=== PATIENT | female | born 1980 | race Caucasian/White ===

== ENCOUNTER 2017-10-20 12:47 | Emergency (ER) | payer BC ==
--- NOTE | 2017-10-20 14:31 | UC ---
Head Injury HPI - HPI Summary HPI Summary: Patient presents with a past medical history of vasovagal syncope. She states Friday she was going to the bathroom, and she started to feel funny and she knew she was going to pass out, but could not stop herself, or catch herself. She fell forward and hit the left side of her head on the floor. Since the fall she has been experiencing pain on the left side of her forehead, including the top of her head. She also reports nausea. She denies double, or blurred vision, numbness, tingling, or ataxia. She does not take any anticoagulants. - History Of Current Complaint Chief Complaint: UCHeadInjury Stated Complaint: HEADACHE, AND NAUSEA Time Seen by Provider: 10/20/17 14:15 Hx Obtained From: Patient Hx Last Menstrual Period: Mirena ?: No Onset/Duration: Sudden Onset, Lasting Days Severity Currently: Moderate Severity Initially: Mild Pain Intensity: 4 Character: Dull, Pressure Aggravating Factor(s): Nothing Alleviating Factor(s): Nothing Associated Signs And Symptoms: Positive: Negative Related History: Similar Episode/Dx as - vasovagal syncope - Risk Factors SDH Risk Factor: Negative - Allergies/Home Medications Allergies/Adverse Reactions: Allergies Allergy/AdvReac Type Severity Reaction Status Date / Time No Known Allergies Allergy Verified 10/20/17 12:57 PMH/Surg Hx/FS Hx/Imm Hx Previously Healthy: Yes Cardiovascular History: Other Other Cardiovascular History: vasovagal syncope - Surgical History Surgical History: Yes Surgery Procedure, Year, and Place: Knee Surgeries ACL MEDIAL MENISCUS REPAIR, MENISCECTOMY IN - - Family History Known Family History: Positive: None - Social History Occupation: Employed Full-time Lives: With Family Alcohol Use: Occasionally Substance Use Type: None Smoking Status (MU): Never Smoked Tobacco Review of Systems Constitutional: Negative Skin: Negative Eyes: Negative ENT: Negative Respiratory: Negative Cardiovascular: Negative Gastrointestinal: Negative Genitourinary: Negative Motor: Negative Neurovascular: Negative Musculoskeletal: Negative Neurological: Headache Psychological: Negative Is Patient Immunocompromised?: No All Other Systems Reviewed And Are Negative: Yes Physical Exam Triage Information Reviewed: Yes Appearance: Well-Appearing Vital Signs: Initial Vital Signs Temp 98.3 F 10/20/17 12:53 Pulse 68 10/20/17 12:53 Resp 14 01/29/18 12:53 BP 120/76 10/20/17 12:53 Pulse Ox 100 10/20/17 12:53 Vital Signs Reviewed: Yes Eye Exam: Normal ENT Exam: Normal Neck exam: Normal Neck: Positive: 1 Respiratory Exam: Normal Cardiovascular Exam: Normal Abdominal Exam: Normal Musculoskeletal Exam: Normal Neurological Exam: Normal Psychological Exam: Normal Skin Exam: Normal Head Injury Course/Dx - Course Course Of Treatment: Patient presents 2 days s/p vasovagal syncope. She presents with headache, and ct brain was obtained and was negative. She presents with what is most likely post concussion syndrome. I did recommend she follow up with cardiology regarding her history of reported vasovagal syncope. She is asymtomatic of those symtpoms at this time, and I do not feel she needs an emergent cardiology consult given her history and the fact that she is not having those type of symtpoms at this time. she verbalized understanding and was in agreement with the discharge plan. - Differential Dx/Diagnosis Differential Diagnosis/HQI/PQRI: Other - vasovagal syncope minor head injury post concussion sydrome Provider Diagnoses: vasovagal syncope. minor head injury. post concussion syndrome Discharge - Discharge Plan Condition: Stable Disposition: HOME Patient Education Materials: Concussion (ED), Head Injury (ED) Referrals: Katheryn Celestin MD [Primary Care Provider] - Additional Instructions: I recommend you follow up with your chief recordist sobia regarding the syncopal episode.
[2017-10-20 14:52] VITALS: BP 124/75
--- NOTE | 2017-10-20 14:55 | RAD ---
INDICATION: Head injury. COMPARISON: There are no prior studies available for comparison. TECHNIQUE: Contiguous axial sections of the brain were obtained from the skull base to the vertex without contrast. FINDINGS: The ventricles, cisterns and sulci are within normal limits. No significant focal abnormality or mass effect is seen. There is no evidence for hemorrhage. No significant focal osseous abnormality is seen. The visualized portion of the paranasal sinuses and mastoid air cells appear clear. IMPRESSION: NO EVIDENCE FOR ACUTE INTRACRANIAL ABNORMALITY.
== END 2017-10-20 14:55 | disposition home or self-care (01) ==
LOC: UCEAST 12:47
DX: S09.90XA Unspecified injury of head, initial encounter (principal); R55 Syncope and collapse; F07.81 Postconcussional syndrome; Z97.5 Presence of (intrauterine) contraceptive device; W18.12XA Fall from or off toilet with subsequent striking against object, initial encounter; Y92.012 Bathroom of single-family (private) house as the place of occurrence of the external cause
CPT/HCPCS: 70450; 99211; G0463

== ENCOUNTER 2018-05-19 17:39 | Emergency (ER) | payer BC ==
[2018-05-19] MEDS ORDERED: NS 0.9% 1000 ML* 1,000 ML IV ONE (17:49)
[2018-05-19 18:14] LABS: ABS Basophils 0 10^3/ul (0-0.2); ABS Eosinophils 0.1 10^3/ul (0-0.6); ABS Monocytes 0.4 10^3/ul (0-0.8); ABS Nucleated RBC 0 10^3/ul; Eosinophil % 0.8 % (0-6); Hematocrit 41 % (35-47); Hemoglobin 14.1 g/dl (12.0-16.0); Lymphocyte % 9.7 % (25-47); Mean Corpuscular HGB Conc 34 g/dl (31-36); Mean Corpuscular Hemoglobin 29 pg (27-31); Mean Corpuscular Volume 86 fL (80-97); Mean Platelet Volume 7.9 um3 (7.4-10.4); Nucleated Red Blood Cells % 0; Platelet Count 227 10^3/ul (150-450); Red Cell Distribution Width 13 % (10.5-15); White Blood Count 10.5 10^3/ul (3.5-10.8)
--- NOTE | 2018-05-19 18:16 | ED ---
Syncope/Near Syncope - HPI Summary HPI Summary: This patient is a 37 year old F presenting to [facility] accompanied by her friend with a chief complaint of syncope since 1550. Pt was using needle to remove a splinter from her daughters hand, and dislikes needles. Pt states she felt like she was going to pass out, and then did, endorsing LOC. The incidence was witnessed by her friend who is accompanying her; she states the pt put head on table, became really stiff 10 seconds later, her hands and feet became lynne and white, she started seizing for ~ 1 minute, with her back arched and hands and feet shaking, eyes wide open, and making unintelligible noises. After she woke pt denied confusion, frothing, weakness, numbness, associated injury, and incontinence, but did endorse nausea. She notes another syncopal episode 3 weeks ago, but hadnt had one before that in years. Pt endorses similar sx in previous incidents. Pt did see a neurologist years ago. She denies PMHx sz. Pt denies alcohol, smoking, drugs, FHx. Rx levothyroxine PMHx thyroid disease. - History Of Current Complaint Chief Complaint: EDSyncope Time Seen by Provider: 05/19/18 18:03 Hx Obtained From: Patient, Other: - friend Onset/Duration: Sudden Onset, Lasting Minutes, Resolved Timing: Constant Context: Witnessed, Loss Of Consciousness Activity At Onset: At Rest Associated Head Trauma: No Aggravating Factor(s): Other - using a needle to remove a splinter, dislike of needles Alleviating Factor(s): Spontaneous Resolution Associated Signs And Symptoms: Lightheadedness, Seizure - feet and hands shaking , back arching, Other - nausea Related History: Similar Episode/Dx as - 3 weeks ago, years ago - Allergies/Home Medications Allergies/Adverse Reactions: Allergies Allergy/AdvReac Type Severity Reaction Status Date / Time No Known Allergies Allergy Verified 05/19/18 17:46 PMH/Surg Hx/FS Hx/Imm Hx Endocrine/Hematology History: Reports: Hx Thyroid Disease - HYPOTHYROIDISM, TAKING MEDICATION Denies: Hx Diabetes Cardiovascular History: Reports: Other Cardiovascular Problems/Disorders - VASO- VAGAL Denies: Hx Angina, Hx Hypertension, Hx Pacemaker/ICD Respiratory History: Denies: Hx Asthma, Hx Chronic Obstructive Pulmonary Disease (COPD), Hx Sleep Apnea, Other Respiratory Problems/Disorders GI History: Denies: Hx Cirrhosis, Hx Crohn's Disease, Hx Gastroesophageal Reflux Disease , Hx Hiatal Hernia, Hx Irritable Bowel, Hx Ulcer History: Denies: Hx Kidney Infection, Hx Kidney Stones, Other Problems/Disorders Musculoskeletal History: Denies: Hx Arthritis, Hx Bursitis, Hx Tendonitis Sensory History: Reports: Hx Contacts or Glasses - PRIMARILY CONTACT Denies: Hx Cataracts, Hx Glaucoma, Hx Deafness, Hx Hearing Aid Opthamlomology History: Reports: Hx Contacts or Glasses - PRIMARILY CONTACT Denies: Hx Cataracts, Hx Glaucoma EENT History: Denies: Hx Deafness Neurological History: Reports: Other Neuro Impairments/Disorders Denies: Hx Headaches, Hx Migraine, Hx Nerve Disease Psychiatric History: Denies: Hx Anxiety, Hx Depression - Surgical History Surgery Procedure, Year, and Place: Knee Surgeries ACL MEDIAL MENISCUS REPAIR, MENISCECTOMY IN - Hx Anesthesia Reactions: No Infectious Disease History: No Infectious Disease History: Denies: Hx Hepatitis, Hx Human Immunodeficiency Virus (HIV), Traveled Outside the [place] in Last 30 Days - Family History Known Family History: Positive: None - Spefically denied all FHx when asked - Social History Occupation: Employed Full-time Lives: With Family Alcohol Use: Occasionally Substance Use Type: Reports: None Smoking Status (MU): Never Smoked Tobacco Review of Systems Negative: Fever, Other - frothing at the mouth Positive: Nausea Negative: incontinence Negative: Arthralgia - denies associated injuries Positive: Syncope. Negative: Weakness, Numbness All Other Systems Reviewed And Are Negative: Yes Physical Exam - Summary Physical Exam Summary: Appearance: Well appearing, no pain distress Skin: warm, dry, reflects adequate perfusion Head/face: normal Eyes: EOMI, SEE ENT: normal Neck: supple, non-tender Respiratory: CTA, breath sounds present Cardiovascular: RRR, pulses symmetrical Abdomen: non-tender, soft Bowel: present Musculoskeletal: normal, strength/ROM intact Neuro: normal, sensory motor intact, A&Ox3 Triage Information Reviewed: Yes Vital Signs On Initial Exam: Initial Vitals Temp Pulse Resp BP Pulse Ox 97.4 F 75 16 129/77 100 05/19/18 17:41 05/19/18 17:41 05/19/18 17:41 05/19/18 17:41 05/19/18 17:41 Vital Signs Reviewed: Yes Diagnostics - Vital Signs Vital Signs Temp Pulse Resp BP Pulse Ox 05/19/18 17:41 97.4 F 75 16 129/77 100 - Laboratory Result Diagrams: 05/19/18 18:04 05/19/18 18:04 Lab Statement: Any lab studies that have been ordered have been reviewed, and results considered in the medical decision making process. - CT Brain CT Interpretation: No Acute Changes CT Interpretation Completed By: Radiologist - No acute intracranial abnormality. Dr. Gonzalez has reviewed this report. - EKG 1753 Cardiac Rate: NL - 61 EKG Rhythm: Sinus Rhythm ST Segment: Non-Specific - ST-T changes Ectopy: None EKG Interpretation: Non-specific ST-T changes EKG Comparison: Other - none to compare to. Re-Evaluation - Re-Evaluation First Eval Re-Evaluation Time: 21:07 Change: Improved Comment: Informed pt of (-) CT, labs. Discussed dx and discharge, pt feels better. Course/Dx Course Of Treatment: A 37-year-old F presents to the ED with a CC of syncope and possible sz at 1550 lasting for 1 minute. (+) LOC, sz-like activity, nausea. (-) confusion s/p syncope, associated injury, frothing, incontinence. PMHx syncopal episodes, has seen neurologist in past for it, no PMHx sz. A CTB was (-). An EKG reveals NSR at 61 BPM with non-specific ST-T changes. In the ED course, pt was given nl saline. The pt shows a low lymph % and high neut %. - Diagnoses Differential Diagnosis/HQI/PQRI: Positive: Hypovolemia, Vasovagal Episode Provider Diagnoses: Vasovagal syncope Discharge - Sign-Out/Discharge Documenting (check all that apply): Patient Departure - discharge - Discharge Plan Condition: Stable Disposition: HOME Patient Education Materials: Syncope (ED) Referrals: Katheryn Celestin MD [Primary Care Provider] - 3 Days Additional Instructions: Return to the emergency department for any new or worsening symptoms. - Billing Disposition and Condition Condition: STABLE Disposition: Home - Attestation Statements Document Initiated by Scribe: Yes Documenting Scribe: Jaleel Gómez Provider For Whom Scribe is Documenting (Include Credential): Dr. Ziyad Gonzalez MD Scribe Attestation: Jaleel House, scribed for Dr. Ziyad Gonzalez MD on 05/19/18 at 2117. Scribe Documentation Reviewed: Yes Provider Attestation: The documentation as recorded by the scribe, Jaleel Gómez accurately reflects the service I personally performed and the decisions made by me, Dr. Ziyad Gonzalez MD
[2018-05-19 18:35] LABS: EGFR Non-African American 63.5 (>60)
--- NOTE | 2018-05-19 20:05 | RAD ---
EXAM: CT Head Without Intravenous Contrast CLINICAL HISTORY: 37 years old, female; Signs and symptoms; Syncope and collapse; Additional info: Syncope/seizure TECHNIQUE: Axial computed tomography images of the head/brain without intravenous contrast. All CT scans at this facility use at least one of these dose optimization techniques: automated exposure control; mA and/or kV adjustment per patient size (includes targeted exams where dose is matched to clinical indication); or iterative reconstruction. COMPARISON: BRAIN WO CT BRAIN WO 10/20/2017 2:35 PM FINDINGS: Brain: No acute hemorrhage, edema, or extraaxial collection. Quinones white differentiation is maintained throughout the brain. Ventricles: Unremarkable. No ventriculomegaly. Bones/joints: No acute fracture or aggressive osseous lesions Soft tissues: Unremarkable. Sinuses: Unremarkable as visualized. No acute sinusitis. Mastoid air cells: Unremarkable as visualized. No mastoid effusion. IMPRESSION: No acute intracranial abnormality.
[2018-05-19 21:14] VITALS: BP 114/79
== END 2018-05-19 21:22 | disposition home or self-care (01) ==
LOC: ED 17:39
DX: R55 Syncope and collapse (principal); R11.0 Nausea; R42 Dizziness and giddiness
CPT/HCPCS: 36415; 70450; 80048; 80076; 83735; 84484; 84702; 85025; 93005; 96360; 99283

== ENCOUNTER → 2019-01-07 15:51 | Emergency (ER) | payer BC ==
[~2019-01-07 15:51] MED LIST: Ketorolac INJ* 30 MG/ML 1 ML VIAL IM ONE; Pantoprazole TAB * 40 MG TAB PO ONE
[2019-01-07 19:12] LABS: Urine Appearance Cloudy; Urine Bilirubin Negative (Negative); Urine Blood Negative (Negative); Urine Color Yellow; Urine Glucose Negative (Negative); Urine Ketones Negative (Negative); Urine Nitrite Negative (Negative); Urine Protein Negative (Negative); Urine Urobilinogen Negative (Negative)
[2019-01-07 19:48] LABS: ABS Basophils 0 10^3/ul (0-0.2); ABS Eosinophils 0.2 10^3/ul (0-0.6); ABS Lymphocytes 1.7 10^3/ul (1.0-4.8); ABS Monocytes 0.4 10^3/ul (0-0.8); ABS Neutrophils 2.7 10^3/ul (1.5-7.7); ABS Nucleated RBC 0 10^3/ul; Eosinophil % 3.4 %; Hematocrit 39 % (33-41); Hemoglobin 13.2 g/dL (12.0-16.0); Lymphocyte % 34.7 %; Mean Corpuscular HGB Conc 34 g/dL (31-36); Mean Corpuscular Hemoglobin 30 pg (27-31); Mean Corpuscular Volume 87 fL (80-97); Mean Platelet Volume 8.5 fL (7.4-10.4); Nucleated Red Blood Cells % 0.1; Platelet Count 203 10^3/uL (150-450); Red Blood Count 4.47 10^6 /uL (3.70-4.87); Red Cell Distribution Width 13 % (10.5-15)
[2019-01-07 20:08] LABS: HCG Pregnancy 0.66 mIU/mL
[2019-01-07 20:22] LABS: Albumin 4.3 g/dL (3.2-5.2); Albumin/Globulin Ratio 1.7 (1-3); BUN/Creatinine Ratio 9.1 (8-20); C Reactive Protein 1.7 mg/L (<8.01); Calcium 9.8 mg/dL (8.6-10.3); EGFR African American 75.6 (>60); EGFR Non-African American 62.4 (>60); Globulin 2.5 g/dL (2-4); Potassium 4.1 mmol/L (3.5-5.0); Total Bilirubin 0.7 mg/dL (0.2-1.0); Total Protein 6.8 g/dL (6.4-8.9)
--- NOTE | 2019-01-07 20:50 | ED ---
Abdominal Pain/Female - HPI Summary HPI Summary: 38-year-old female presents with onset of generalized abdominal pain today with some mild nausea. Describes pain as an ache. Nonradiating. Reports normal formed brown stools. Last BM yesterday. Patient has Mirena IUD and does not get her menses. Denies fever, chills, vomiting, diarrhea, constipation, blood in stool, melena, back or flank pain, dysuria, frequency, urgency, hematuria, vaginal discharge, abnormal vaginal bleeding or dyspareunia. - History of Current Complaint Chief Complaint: EDAbdPain Stated Complaint: ABD PAIN PER PT Time Seen by Provider: 01/07/19 18:47 Hx Obtained From: Patient Hx Last Menstrual Period: Mirena Pain Intensity: 7 Allergies/Adverse Reactions: Allergies Allergy/AdvReac Type Severity Reaction Status Date / Time No Known Allergies Allergy Verified 01/07/19 15:57 PMH/Surg Hx/FS Hx/Imm Hx Previously Healthy: Yes Endocrine/Hematology History: Reports: Hx Thyroid Disease - HYPOTHYROIDISM, TAKING MEDICATION Denies: Hx Diabetes Cardiovascular History: Reports: Other Cardiovascular Problems/Disorders - VASO- VAGAL Denies: Hx Angina, Hx Hypertension, Hx Pacemaker/ICD Respiratory History: Denies: Hx Asthma, Hx Chronic Obstructive Pulmonary Disease (COPD), Hx Sleep Apnea, Other Respiratory Problems/Disorders GI History: Denies: Hx Cirrhosis, Hx Crohn's Disease, Hx Gastroesophageal Reflux Disease , Hx Hiatal Hernia, Hx Irritable Bowel, Hx Ulcer History: Denies: Hx Kidney Infection, Hx Kidney Stones, Other Problems/Disorders Musculoskeletal History: Denies: Hx Arthritis, Hx Bursitis, Hx Tendonitis Sensory History: Reports: Hx Contacts or Glasses - PRIMARILY CONTACT Denies: Hx Cataracts, Hx Glaucoma, Hx Deafness, Hx Hearing Aid Opthamlomology History: Reports: Hx Contacts or Glasses - PRIMARILY CONTACT Denies: Hx Cataracts, Hx Glaucoma Neurological History: Reports: Other Neuro Impairments/Disorders Denies: Hx Headaches, Hx Migraine, Hx Nerve Disease Psychiatric History: Denies: Hx Anxiety, Hx Depression - Surgical History Surgery Procedure, Year, and Place: Knee Surgeries ACL MEDIAL MENISCUS REPAIR, MENISCECTOMY IN - Hx Anesthesia Reactions: No Infectious Disease History: No Infectious Disease History: Denies: Hx Hepatitis, Hx Human Immunodeficiency Virus (HIV), Traveled Outside the [place] in Last 30 Days - Family History Known Family History: Positive: None - Spefically denied all FHx when asked - Social History Occupation: Employed Full-time Lives: With Family Alcohol Use: Rare Substance Use Type: Reports: None Smoking Status (MU): Never Smoked Tobacco Review of Systems Negative: Fever, Chills, Fatigue Negative: Sore Throat Negative: Palpitations, Chest Pain Negative: Shortness Of Breath, Cough Positive: Abdominal Pain, Nausea. Negative: Vomiting, Diarrhea Negative: dysuria, discharge, frequency, flank pain, hematuria, urgency, other - abnormal vaginal bleeding Musculoskeletal: Negative Skin: Negative Neurological: Negative All Other Systems Reviewed And Are Negative: Yes Physical Exam - Summary Physical Exam Summary: GENERAL APPEARANCE: Well developed, well nourished, alert and cooperative, and appears to be in no acute distress. THROAT: Pharynx normal No tonsilar inflammation, swelling, exudate, or lesions. Uvula midline. Oral cavity normal. Teeth and gingiva in good general condition. NECK: Neck supple, non-tender without lymphadenopathy. CARDIAC: Normal S1 and S2. No S3, S4 or murmurs. Rhythm is regular. There is no peripheral edema, cyanosis or pallor. Extremities are warm and well perfused. Capillary refill is less than 2 seconds. Peripheral pulses intact. LUNGS: Clear to auscultation without rales, rhonchi, wheezing or diminished breath sounds. ABDOMEN: Positive bowel sounds. Soft and nondistended. Mild generalized abdominal pain without guarding or rebound. No masses or hepatosplenomegally. No CVA tenderness. MUSKULOSKELETAL: ROM intact to all extremities. No joint erythema or tenderness. Normal muscular development. Normal gait. SKIN: Skin normal color, texture and turgor with no lesions or eruptions. Vital Signs On Initial Exam: Initial Vitals Temp Pulse Resp BP Pulse Ox 98.3 F 65 16 124/82 99 01/07/19 15:55 01/07/19 15:55 01/07/19 15:55 01/07/19 15:55 01/07/19 15:55 Diagnostics - Vital Signs Vital Signs Temp Pulse Resp BP Pulse Ox 01/07/19 19:30 112/75 01/07/19 19:03 60 100 01/07/19 19:01 59 114/70 100 01/07/19 18:30 53 106/70 100 01/07/19 18:01 79 122/75 100 01/07/19 17:12 98.9 F 58 16 104/76 99 01/07/19 15:55 98.3 F 65 16 124/82 99 - Laboratory Lab Results: Lab Results 01/07/19 01/07/19 01/07/19 Range/Units 19:01 19:31 19:31 WBC 5.0 (3.5-10.8) 10^3/uL RBC 4.47 (3.70-4.87) 10^6 /uL Hgb 13.2 (12.0-16.0) g/dL Hct 39 (33-41) % MCV 87 (80-97) fL MCH 30 (27-31) pg MCHC 34 (31-36) g/dL RDW 13 (10.5-15) % Plt Count 203 (150-450) 10^3/uL MPV 8.5 (7.4-10.4) fL Neut % (Auto) 53.9 % Lymph % (Auto) 34.7 % Caroline % (Auto) 7.5 % Eos % (Auto) 3.4 % Baso % (Auto) 0.5 % Absolute Neuts (auto) 2.7 (1.5-7.7) 10^3/ul Absolute Lymphs (auto) 1.7 (1.0-4.8) 10^3/ul Absolute Monos (auto) 0.4 (0-0.8) 10^3/ul Absolute Eos (auto) 0.2 (0-0.6) 10^3/ul Absolute Basos (auto) 0 (0-0.2) 10^3/ul Absolute Nucleated RBC 0 10^3/ul Nucleated RBC % 0.1 Sodium 140 (135-145) mmol/L Potassium 4.1 (3.5-5.0) mmol/L Chloride 108 (101-111) mmol/L Carbon Dioxide 27 (22-32) mmol/L Anion Gap 5 (2-11) mmol/L BUN 9 (6-24) mg/dL Creatinine 0.99 H (0.51-0.95) mg/dL Est GFR ( Amer) 75.6 (>60) Est GFR (Non-Af Amer) 62.4 (>60) BUN/Creatinine Ratio 9.1 (8-20) Glucose 97 (70-100) mg/dL Lactic Acid (0.5-2.0) mmol/L Calcium 9.8 (8.6-10.3) mg/dL Total Bilirubin 0.70 (0.2-1.0) mg/dL AST 18 (13-39) U/L ALT 16 (7-52) U/L Alkaline Phosphatase 66 (34-104) U/L C-Reactive Protein 1.70 (<8.01) mg/L Total Protein 6.8 (6.4-8.9) g/dL Albumin 4.3 (3.2-5.2) g/dL Globulin 2.5 (2-4) g/dL Albumin/Globulin Ratio 1.7 (1-3) Lipase 29 (11.0-82.0) U/L Beta HCG, Quant 0.66 mIU/mL Urine Color Yellow Urine Appearance Cloudy Urine pH 5.0 (5-9) Ur Specific [place] 1.020 (1.010-1.030) Urine Protein Negative (Negative) Urine Ketones Negative (Negative) Urine Blood Negative (Negative) Urine Nitrate Negative (Negative) Urine Bilirubin Negative (Negative) Urine Urobilinogen Negative (Negative) Ur Leukocyte Esterase Negative (Negative) Urine Glucose Negative (Negative) 01/07/19 Range/Units 19:31 WBC (3.5-10.8) 10^3/uL RBC (3.70-4.87) 10^6 /uL Hgb (12.0-16.0) g/dL Hct (33-41) % MCV (80-97) fL MCH (27-31) pg MCHC (31-36) g/dL RDW (10.5-15) % Plt Count (150-450) 10^3/uL MPV (7.4-10.4) fL Neut % (Auto) % Lymph % (Auto) % Caroline % (Auto) % Eos % (Auto) % Baso % (Auto) % Absolute Neuts (auto) (1.5-7.7) 10^3/ul Absolute Lymphs (auto) (1.0-4.8) 10^3/ul Absolute Monos (auto) (0-0.8) 10^3/ul Absolute Eos (auto) (0-0.6) 10^3/ul Absolute Basos (auto) (0-0.2) 10^3/ul Absolute Nucleated RBC 10^3/ul Nucleated RBC % Sodium (135-145) mmol/L Potassium (3.5-5.0) mmol/L Chloride (101-111) mmol/L Carbon Dioxide (22-32) mmol/L Anion Gap (2-11) mmol/L BUN (6-24) mg/dL Creatinine (0.51-0.95) mg/dL Est GFR ( Amer) (>60) Est GFR (Non-Af Amer) (>60) BUN/Creatinine Ratio (8-20) Glucose (70-100) mg/dL Lactic Acid 0.9 (0.5-2.0) mmol/L Calcium (8.6-10.3) mg/dL Total Bilirubin (0.2-1.0) mg/dL AST (13-39) U/L ALT (7-52) U/L Alkaline Phosphatase (34-104) U/L C-Reactive Protein (<8.01) mg/L Total Protein (6.4-8.9) g/dL Albumin (3.2-5.2) g/dL Globulin (2-4) g/dL Albumin/Globulin Ratio (1-3) Lipase (11.0-82.0) U/L Beta HCG, Quant mIU/mL Urine Color Urine Appearance Urine pH (5-9) Ur Specific [place] (1.010-1.030) Urine Protein (Negative) Urine Ketones (Negative) Urine Blood (Negative) Urine Nitrate (Negative) Urine Bilirubin (Negative) Urine Urobilinogen (Negative) Ur Leukocyte Esterase (Negative) Urine Glucose (Negative) Result Diagrams: 01/07/19 19:31 01/07/19 19:31 Lab Statement: Any lab studies that have been ordered have been reviewed, and results considered in the medical decision making process. Abdominal Pain Fem Course/Dx - Course Course Of Treatment: 38-year-old female presents with onset of generalized abdominal pain today with some mild nausea. Describes pain as an ache. Nonradiating. Reports normal formed brown stools. Last BM yesterday. Patient has Mirena IUD and does not get her menses. Denies fever, chills, vomiting, diarrhea, constipation, blood in stool, melena, back or flank pain, dysuria, frequency, urgency, hematuria, vaginal discharge, abnormal vaginal bleeding or dyspareunia. Afebrile. Vital signs stable. Exam was overall unremarkable except for some mild generalized abdominal pain without guarding or rebound. No hepatosplenomegaly. No CVA tenderness. Lab work was all within normal limits including a negative serum . UA normal. Reviewed results with the patient and discussed obtaining imaging for further evaluation of her pain versus watchful waiting. Patient is electing for watchful waiting at this time. Patient initially declined pain medication but then consented to receiving ketorolac 50 mg IM for her pain. I have also recommended that she start on omeprazole 40 mg daily and the first dose was given in the emergency room. She is to follow-up with her primary care provider in 3-5 days. Anticipatory guidance and warning symptoms were reviewed with the patient. Verbalizes understanding and agrees plan of care. - Diagnoses Differential Diagnosis: Positive: Gall Bladder Disease, Pancreatitis, Peptic Ulcer Disease, , Renal Colic, Urinary Tract Infection Provider Diagnoses: Acute abdominal pain Discharge - Sign-Out/Discharge Documenting (check all that apply): Patient Departure Patient Received Moderate/Deep Sedation with Procedure: No - Discharge Plan Condition: Stable Disposition: HOME Prescriptions: Omeprazole 40 mg PO DAILY #30 capsule. Patient Education Materials: Acute Abdominal Pain (ED) Referrals: Katheryn Cleestin MD [Primary Care Provider] - 3 Days (If no improvement.) Additional Instructions: The lab work and urine tests performed in the emergency room today were all normal. I do not have a good explanation for your abdominal pain at this time but feel that based on your history and exam imaging is probably not needed at this time and we can do some watchful waiting. Start omeprazole 40 mg daily. You were given a dose in the emergency room. Be sure you stay well hydrated. If you are still having nausea, I would recommend sticking to a bland diet including saltine crackers, toast, bananas, rice, and applesauce then return to a normal diet as tolerated. Avoid spicy or fatty foods. Follow up here or with your primary care provider in 3-5 days if symptoms persist. Seek immediate medical attention in the emergency room if you develop fever greater than 100.5 F, have severe abdominal pain, persistent vomiting, blood in your vomit or stool, or any worsening of symptoms. - Billing Disposition and Condition Condition: STABLE Disposition: Home
[2019-01-07 21:47] VITALS: BP 123/83
== END | disposition home or self-care (01) ==
LOC: ED 15:51
DX: R10.9 Unspecified abdominal pain (principal); E03.9 Hypothyroidism, unspecified; Z79.899 Other long term (current) drug therapy; Z97.5 Presence of (intrauterine) contraceptive device
CPT/HCPCS: 36415; 80053; 81003; 83605; 83690; 84702; 85025; 86140; 96374; 99283; A9270-GY; J1885

== ENCOUNTER 2019-11-01 22:17 | Emergency (ER) | payer BC ==
--- NOTE | 2019-11-01 23:05 | ED ---
Neurological HPI - HPI Summary HPI Summary: Patient complains of sudden onset numbness and tingling to left hand and bilateral lips starting at 8:45 PM this evening. Symptoms resolved after 15 minutes. Denies prior history of same symptoms, facial droop, speech change, imbalance, vision change, dizziness, N/V, VALLE, trauma, fever, cough, sore throat , CP, SOB, N/3/D, abdominal pain, change in urine, change in BM. Sent by urgent care for stroke rule out. Medical History is none. - History of Current Complaint Chief Complaint: EDNeurologicalDeficit Stated Complaint: L SIDED NUMBNESS PER EMS Time Seen by Provider: 11/01/19 22:50 Hx Obtained From: Patient Hx Last Menstrual Period: Mirena Onset/Duration: Sudden Onset, Started hours ago Timing: Intermittent Episodes Lasting: Onset Severity: Mild Current Severity: None Neurological Deficit Location: Facial, LUE Pain Intensity: 5 Pain Scale Used: 0-10 Numeric Character: Numbness/Tingling - Allergy/Home Medications Allergies/Adverse Reactions: Allergies Allergy/AdvReac Type Severity Reaction Status Date / Time No Known Allergies Allergy Verified 11/01/19 22:32 PMH/Surg Hx/FS Hx/Imm Hx Endocrine/Hematology History: Reports: Hx Thyroid Disease - HYPOTHYROIDISM, TAKING MEDICATION Denies: Hx Diabetes Cardiovascular History: Reports: Other Cardiovascular Problems/Disorders - VASO- VAGAL Denies: Hx Angina, Hx Hypertension, Hx Pacemaker/ICD Respiratory History: Denies: Hx Asthma, Hx Chronic Obstructive Pulmonary Disease (COPD), Hx Sleep Apnea, Other Respiratory Problems/Disorders GI History: Denies: Hx Cirrhosis, Hx Crohn's Disease, Hx Gastroesophageal Reflux Disease , Hx Hiatal Hernia, Hx Irritable Bowel, Hx Ulcer History: Denies: Hx Kidney Infection, Hx Kidney Stones, Other Problems/Disorders Musculoskeletal History: Denies: Hx Arthritis, Hx Bursitis, Hx Tendonitis Sensory History: Reports: Hx Contacts or Glasses - PRIMARILY CONTACT Denies: Hx Cataracts, Hx Glaucoma, Hx Deafness, Hx Hearing Aid Opthamlomology History: Reports: Hx Contacts or Glasses - PRIMARILY CONTACT Denies: Hx Cataracts, Hx Glaucoma Neurological History: Reports: Other Neuro Impairments/Disorders Denies: Hx Headaches, Hx Migraine, Hx Nerve Disease Psychiatric History: Denies: Hx Anxiety, Hx Depression - Surgical History Surgery Procedure, Year, and Place: Knee Surgeries '98 ACL MEDIAL MENISCUS REPAIR, MENISCECTOMY IN - Hx Anesthesia Reactions: No Infectious Disease History: No Infectious Disease History: Denies: Hx Hepatitis, Hx Human Immunodeficiency Virus (HIV), Traveled Outside the [place] in Last 30 Days - Family History Known Family History: Positive: None - Spefically denied all FHx when asked, Cardiac Disease, Diabetes, Other - no FH of stroke - Social History Alcohol Use: Rare Substance Use Type: Reports: None Smoking Status (MU): Never Smoked Tobacco Review of Systems Constitutional: Negative Eyes: Negative ENT: Negative Cardiovascular: Negative Respiratory: Negative Gastrointestinal: Negative Genitourinary: Negative Musculoskeletal: Other Skin: Negative Neurological/Mental Status: Negative Psychological: Normal All Other Systems Reviewed And Are Negative: Yes Physical Exam - Summary Physical Exam Summary: Neuro exam normal. Diploma Pharmacy Technician strength normal left hand. Triage Information Reviewed: Yes Vital Signs On Initial Exam: Initial Vitals Temp Pulse Resp BP Pulse Ox 98.2 F 67 15 143/85 100 11/01/19 22:22 11/01/19 22:22 11/01/19 22:22 11/01/19 22:22 11/01/19 22:22 Vital Signs Reviewed: Yes Appearance: Positive: Well-Appearing Skin: Positive: Warm Head/Face: Positive: Normal Head/Face Inspection Eyes: Positive: Normal ENT: Positive: Normal ENT inspection Neck: Positive: Supple Respiratory/Lung Sounds: Positive: Clear to Auscultation Cardiovascular: Positive: Normal Abdomen Description: Positive: Nontender Musculoskeletal: Positive: Normal Neurological: Positive: Normal Psychiatric: Positive: Normal AVPU Assessment: Alert - Yuli Coma Scale Best Eye Response: 4 - Spontaneous Best Motor Response: 6 - Obeys Commands Best Verbal Response: 5 - Oriented Coma Scale Total: 15 Procedures - Sedation Patient Received Moderate/Deep Sedation with Procedure: No Diagnostics - Vital Signs Vital Signs Temp Pulse Resp BP Pulse Ox 11/01/19 22:22 98.2 F 67 15 143/85 100 - Laboratory Result Diagrams: 11/01/19 23:26 11/01/19 23:26 Lab Statement: Any lab studies that have been ordered have been reviewed, and results considered in the medical decision making process. Course/Dx - Course Course Of Treatment: Patient complains of sudden onset numbness and tingling to left hand and bilateral lips starting at 8:45 PM this evening. Symptoms resolved after 15 minutes. Denies prior history of same symptoms, facial droop , speech change, imbalance, vision change, dizziness, N/V, VALLE, trauma, fever, cough, sore throat, CP, SOB, N/3/D, abdominal pain, change in urine, change in BM. Sent by urgent care for stroke rule out. Medical History is none. Vital signs within normal limits. Labs unremarkable. CT brain negative. - Diagnoses Provider Diagnoses: Tingling of left upper extremity, Numbness and tingling Discharge ED - Sign-Out/Discharge Documenting (check all that apply): Patient Departure - Discharge Plan Condition: Stable Disposition: HOME Patient Education Materials: Paresthesia (ED) Referrals: Katheryn Celestin MD [Primary Care Provider] - Sheldon Mijares MD [Medical Doctor] - Additional Instructions: If symptoms return follow-up with neurology Dr. Mijares for further evaluation. Return to the ED for worsening or concerning symptoms. - Billing Disposition and Condition Condition: STABLE Disposition: Home
[2019-11-01 23:34] LABS: ABS Lymphocytes 1.6 10^3/ul (1.0-4.8); ABS Monocytes 0.5 10^3/ul (0-0.8); ABS Neutrophils 7.2 10^3/ul (1.5-7.7); Eosinophil % 0.5 %; Hematocrit 38 % (35-47); Hemoglobin 13.2 g/dL (12.0-16.0); Lymphocyte % 17.3 %; Mean Corpuscular HGB Conc 35 g/dL (31-36); Mean Corpuscular Hemoglobin 29 pg (27-31); Mean Corpuscular Volume 85 fL (80-97); Mean Platelet Volume 8.1 fL (7.4-10.4); Platelet Count 209 10^3/uL (150-450); Red Blood Count 4.51 10^6 /uL (3.70-4.87); Red Cell Distribution Width 13 % (10-15); White Blood Count 9.4 10^3/uL (3.5-10.8)
[2019-11-01 23:55] LABS: ALT 9 U/L (7-52); AST 14 U/L (13-39); Albumin 4.4 g/dL (3.2-5.2); Albumin/Globulin Ratio 1.8 (1-3); Alkaline Phosphatase 76 U/L (34-104); Anion Gap 7 mmol/L (2-11); BUN/Creatinine Ratio 10.1 (8-20); Blood Urea Nitrogen 10 mg/dL (6-24); C Reactive Protein < 1.00 mg/L (<8.01); CO2 Carbon Dioxide 25 mmol/L (22-32); Chloride 107 mmol/L (101-111); EGFR African American 75.6 (>60); EGFR Non-African American 62.4 (>60); Globulin 2.5 g/dL (2-4); Glucose 92 mg/dL (70-100); Potassium 3.9 mmol/L (3.5-5.0); Sodium 139 mmol/L (135-145); Total Protein 6.9 g/dL (6.4-8.9)
[2019-11-02 00:01] LABS: HCG Pregnancy < 0.60 mIU/mL
[2019-11-02 00:19] LABS: TSH (Thyroid Stimulating Horm) 3.09 mcIU/mL (0.34-5.60)
[2019-11-02 00:59] VITALS: BP 111/72
== END 2019-11-02 00:57 | disposition home or self-care (01) ==
LOC: ED 22:17
DX: R20.0 Anesthesia of skin (principal); R20.2 Paresthesia of skin; E03.9 Hypothyroidism, unspecified; Z86.79 Personal history of other diseases of the circulatory system; Z79.890 Hormone replacement therapy
CPT/HCPCS: 36415; 70450; 80053; 83735; 84443; 84702; 85025; 86140; 99282